=== PATIENT | male | born 1960 | race African-American/Black ===

== ENCOUNTER 2017-10-08 15:40 | Inpatient (IN) | payer SELFPAY ==
[~2017-10-08] VITALS: Ht 180.3 cm; Wt 104.3 kg
[2017-10-08 17:22] LABS: BASOPHILS % 0.7 % (0.0-2.0); EOSINOPHILS % 2.6 % (0.0-5.0); HEMOGLOBIN. 11.5 g/dL (14.0-18.0); LYMPHOCYTES % 25.5 % (20.0-50.0); MEAN CORPUSCULAR VOLUME 81.1 fL (80.0-94.0); MEAN PLATELET VOLUME 9.9 fl (7.4-10.4); MONOCYTES % 10.7 % (2.0-8.0); NEUTROPHILS % 60.5 % (40.0-76.0); PLATELET 270 x1000/uL (130-400); RED BLOOD CELL COUNT 4.44 mill/uL (4.7-6.1); RED CELL DISTRIBUTION WIDTH 17.4 % (11.6-14.6)
[2017-10-08 17:26] LABS: CHLORIDE 112 mEq/L (98-107)
[2017-10-08 17:27] LABS: INR 1.1; PROTHROMBIN TIME 11.8 sec (9.4-11.6)
[2017-10-08] MEDS ORDERED: FUROSEMIDE 40MG/4ML VIAL IVP ONE (18:30)
[2017-10-08 21:11] LABS: CLARITY URINE CLEAR (CLEAR); COLOR URINE YELLOW (YELLOW); KETONES URINE NEGATIVE (NEGATIVE); LEUKOCYTE ESTERASE URINE NEGATIVE (NEGATIVE); NITRITE URINE NEGATIVE (NEGATIVE); OCCULT BLOOD URINE NEGATIVE (NEGATIVE); PROTEIN URINE NEGATIVE (NEGATIVE); SPECIFIC GRAVITY URINE 1.009 (1.005-1.030); UROBILINOGEN URINE 0.2 E.U./dL (0.2-1.0)
[2017-10-08] MEDS ORDERED: NITROGLYCERIN 50MG PREMIX 250 ML IV ONE (22:30)
[2017-10-08] MEDS ORDERED: IOHEXOL-350 100 ML BOTTLE ONE (23:52)
[2017-10-09] MEDS ORDERED: ENOXAPARIN 40MG/0.4ML SYR SUBCUT SCH (00:15)
[2017-10-09] MEDS ORDERED: CLONIDINE 0.1MG TABLET PO PRN (02:19)
[2017-10-09] MEDS ORDERED: ONDANSETRON HCL 4MG/2ML VIAL IV PRN (03:22)
[2017-10-09] MEDS ORDERED: DOCUSATE SODIUM 100MG CAPSULE PO PRN (03:23)
[2017-10-09] MEDS ORDERED: ACETAMINOPHEN 325MG TABLET PO PRN (03:23)
[2017-10-09] MEDS ORDERED: HYDROCODONE/ACETAMINOPHEN 5/325MG TABLET PO PRN (03:23)
[2017-10-09] MEDS ORDERED: IPRATROPIUM/ALBUTEROL 0.5-3(2.5)MG/3ML NEB INH PRN (03:23)
[2017-10-09] MEDS ORDERED: GUAIFENESIN 200MG/10ML SUGAR FREE UDC PO PRN (03:23)
[2017-10-09] MEDS ORDERED: MORPHINE SULFATE 4 MG/ML CPJ (NOT FOR IM USE) IV PRN (03:25)
[2017-10-09 03:49] VITALS: BP 160/108
[2017-10-09 08:09] LABS: CREATINE KINASE MB FRACTION 1.7 ng/mL (0.5-3.6)
[2017-10-09 08:20] VITALS: BP 145/95
[2017-10-09] MEDS ORDERED: ENOXAPARIN 30MG/0.3ML SYR SUBCUT SCH (09:00)
[2017-10-09] MEDS ORDERED: ASPIRIN 81MG EC TABLET PO SCH (09:00)
[2017-10-09] MEDS ORDERED: FUROSEMIDE 40MG/4ML VIAL IV SCH (09:00)
[2017-10-09] MEDS ORDERED: AMLODIPINE 10MG TABLET PO SCH (09:00)
[2017-10-09 11:57] VITALS: BP 137/92
[2017-10-09 15:05] VITALS: BP 137/92
[2017-10-09 16:20] VITALS: BP 129/90
[2017-10-09 17:04] LABS: CREATINE KINASE MB FRACTION 2.5 ng/mL (0.5-3.6)
== END 2017-10-09 17:03 | disposition home or self-care (01) | DRG 194 ==
LOC: ER 15:40 → 6WST 18:59 → EDBEDREQ 22:49 → SUPCPDRO 10-09 00:09 → ENRESERV 10-09 01:52
PROVIDERS: ADMIT Hospitalist; ATTEND Hospitalist
DX: I11.0 Hypertensive heart disease with heart failure (principal); F17.200 Nicotine dependence, unspecified, uncomplicated; I50.9 Heart failure, unspecified
CPT/HCPCS: 36415; 71045; 71275; 80053; 81003; 82550; 82553; 83880; 84484; 85025; 85379; 85610; 87804; 93005; 93306; 93970; J1650; J1940; J3490; Q9967